=== PATIENT | male | born 1995 | race Caucasian/White ===

== ENCOUNTER 2017-07-04 19:15 | Emergency (ER) | payer MEDICARE ==
[~2017-07-04] VITALS: Ht 157.5 cm; Wt 81.6 kg
--- NOTE | 2017-07-04 19:17 | NUR ---
Brought in by law officer in custody for medical clearance. Patient to ER hallway for evaluation. Side rails up.
[2017-07-04 19:20] VITALS: BP_SYST 153
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
--- NOTE | 2017-07-04 19:44 | NUR ---
ER MD Pedro Starr at bedside evaluating the patient
--- NOTE | 2017-07-04 20:26 | NUR ---
Patient back from CT via wheelchair with sheriff mckenzie.
[2017-07-04 20:54] VITALS: BP_SYST 133
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
== END 2017-07-04 20:54 ==
LOC: SED 19:15
DX: Z02.89 Encounter for other administrative examinations (principal); R04.0 Epistaxis; Y04.2XXA Assault by strike against or bumped into by another person, initial encounter; Y93.89 Activity, other specified; Y92.89 Other specified places as the place of occurrence of the external cause; Y99.8 Other external cause status
CPT/HCPCS: 70150-TC; 70486-TC; 99284